=== PATIENT | female | born 1965 | race Caucasian/White ===

== ENCOUNTER 2021-10-25 14:04 | Emergency (ER) | payer OTHER ==
[~2021-10-25] VITALS: Ht 157.5 cm; Wt 81.6 kg
[2021-10-25 14:09] VITALS: BP 115/77
--- NOTE | 2021-10-25 14:22 | NUR ---
PATIENT AMBULATED WITH CANE TO BED 8.
--- NOTE | 2021-10-25 15:18 | NUR ---
PATIENT TAKEN TO [facility] VIA WHEELCHAIR.
[2021-10-25] MEDS ORDERED: ACETAMINOPHEN EXTRA STRENGTH 500 MG TAB PO ONE (15:35)
--- NOTE | 2021-10-25 15:36 | NUR ---
DR. UREÑA EVALUATING PATIENT AT BEDSIDE.
--- NOTE | 2021-10-25 16:00 | NUR ---
56/F BIB SELF, AA&OX4, AMBULATORY W/ ASSISTIVE DEVICE; PRESENTS TO ED WITH C/O R. CALF AND LOWER LEG PAIN X1 DAY. PATIENT REPORTS PAIN IS 7/10, "CRAMPING" AND WORSENS WITH AMBULATION. PATIENT DENIES TRAUMA/INJURY. PATIENT HAS SEEN HER PCP TODAY AND WAS PRESCRIBED IBUPROFEN FOR PAIN RELIEF, NO RELIEF NOTED. PATIENT DENIES N/V/D/C, CP, SOB, FALLS. PMH: HTN MEDS: LISINOPRIL NKA
[2021-10-25 16:05] VITALS: BP 115/77
--- NOTE | 2021-10-25 16:05 | NUR ---
Patient discharged with v/s stable. Written and verbal after care instructions ABOUT MUSCLE STRAIN given and explained. Patient verbalized understanding. Ambulatory with steady gait. All questions addressed prior to discharge. Advised to follow up with PMD.
== END 2021-10-25 16:05 | disposition home or self-care (01) ==
LOC: MED 14:04
DX: M25.561 Pain in right knee (principal); X50.0XXA Overexertion from strenuous movement or load, initial encounter; Y93.89 Activity, other specified; Y92.89 Other specified places as the place of occurrence of the external cause; Y99.8 Other external cause status
CPT/HCPCS: 73562; 93971; 99284; Q0092